=== PATIENT | female | born 1950 | race Caucasian/White ===

== ENCOUNTER 2019-10-08 11:08 | Day surgery (SDC) | payer MEDICARE, OTHER ==
--- NOTE | 2019-10-08 07:04 | History and Physical - Ferro ---
CHIEF COMPLAINT/HISTORY OF CHIEF COMPLAINT: This patient presents with a history of a post lumbar laminectomy radiculopathy. An implanted spinal infusion device was implanted which is infusing Morphine. Current basal rate is 7.7 mg a day. Pain level currently 0-10 is a 6. Recent refill and reprogramming identified battery depletion. She is here for battery replacement. PAST MEDICAL HISTORY: Noncontributory. PAST SURGICAL HISTORY: Lumbar spinal surgery and pump implant. MEDICATIONS ON ADMISSION: List to be provided. ALLERGIES: ASPIRIN. FAMILY/PSYCHOSOCIAL HISTORY: Social history - Caffeine. Family history - Noncontributory. SYSTEMS REVIEW: The patient is appropriate in no acute distress. The remainder of the systems review is positive for glasses and degenerative arthritis. PHYSICAL EXAMINATION: Height and weight are not known. No vital signs. HEENT: Within normal limits. LUNGS: Clear. HEART: Rapid and regular. ABDOMEN: Nontender. MUSCULOSKELETAL: Examination of the musculoskeletal system shows diffuse tenderness throughout the lumbar spine. Range of motion produces pain throughout the low back and extending into the lower extremities. The spinal catheter was identified on imaging and appears to tip at T12 insertion, approximately L3-L4 pump in the left lower abdominal quadrant. The incision is intact. Her lower extremity functionality is intact. There is pain, weakness and numbness into the right lower extremity. NEUROLOGIC: Cranial nerves are intact. IMPRESSION: 1. 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 2. IMPLANTED SPINAL OPIOID INFUSION SYSTEM MORPHINE WITH BATTERY DEPLETION. PLAN: The patient is here for pump battery change on an outpatient basis. No perimeter changes will be made. The risks, side effects and complications have been reviewed and discussed. JOB NUMBER: [id number] [facility]
[~2019-10-08 11:08] MED LIST: ACETAMINOPHEN 1,000 MG/100 ML BTL IVPB ONE; BUPIVACAINE HCL IV ONE; CEFAZOLIN 2 Gram 2 GM/50 ML BAG IVPB ONE; FAMOTIDINE 20MG TABLET PO ONE; HYDROMORPHONE HCL IV ONE; HYDROMORPHONE PF 2MG/ML AMP 0.008 MG in 0.9 % SODIUM CHLORIDE 10ML VIA 0.996 ML IV ONE; MECLIZINE 25 MG TABLET PO ONE; METOCLOPRAMIDE 10 MG TABLET PO ONE; SODIUM CHLORIDE 0.9% IV ONE
[2019-10-08] MEDS ORDERED: FENTANYL PF 100MCG/2ML VIAL IV ONE (11:09)
[2019-10-08] MEDS ORDERED: PROPOFOL 10 MG/ML VIAL IV ONE (11:09)
[2019-10-08] MEDS ORDERED: MIDAZOLAM HCL 2MG/2ML VIAL IV ONE (11:09)
[2019-10-08] MEDS ORDERED: LIDOCAINE 2% MDV (20MG/ML) 20ML VIAL IV ONE (11:09)
[2019-10-08] MEDS ORDERED: RINGERS SOLUTION,LACTATED 1,000 ML IV ONE (12:00)
[2019-10-08] MEDS ORDERED: BUPIVACAINE 0.5% W/EPI MPF 30 ML VIAL SQ ONE (14:56)
[2019-10-08] MEDS ORDERED: LIDOCAINE 1% W/EPI 1:200,000 MPF 30ML SQ ONE (14:56)
[2019-10-08] MEDS ORDERED: HYDROCODONE/APAP 7.5/325MG TABLET PO ONE (15:42)
--- NOTE | 2019-10-09 08:29 | Operative Note - Ferro ---
DATE OF SURGERY: 10/08/2019 PREOPERATIVE DIAGNOSIS: 1. 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 2. IMPLANTED SPINAL OPIOID INFUSION SYSTEM HYDROMORPHONE AND BUPIVACAINE WITH BATTERY DEPLETION. OPERATION: FLUOROSCOPICALLY GUIDED INCISION, SUBCUTANEOUS DISSECTION, REMOVAL AND REPLACEMENT OF INTERNAL BATTERY AT LEFT LOWER ABDOMINAL QUADRANT FOR INTERSPINAL INFUSION SYSTEM. SURGEON: Veto Rubi D.O. ANESTHESIA: Local sedation. ANESTHESIA PROVIDER: JAKE Magana CRNA INDICATION: This patient presents with history of intractable post lumbar laminectomy radiculopathy. Out of the area an interspinal infusion device was placed. She was referred and eventually picked up by this clinic to manage her pump after her implanting physician retired. Over the last number of reprogramming's and refills the pump battery depletion was identified. She is here for replacement. PROCEDURE: Intravenous line, vital sign monitoring, IV sedation, prepped and draped, sterile technique. The patient was positioned supine. Sterile prep, sterile technique. At the left lower abdominal quadrant pump pouch the skin was infiltrated, an incision made, and subcutaneous dissection was conducted to the pouch which was opened. The pump was externalized, from the internal catheter, antibiotic irrigation, and Bovie for hemostasis. A new 40 ml pump prefilled with Hydromorphone and Bupivacaine was placed onto the field then interfaced with the existing catheter, antibiotic irrigation, and Bovie for hemostasis. The pump was placed into the pouch, secured to the posterior fascia with a single nonabsorbable suture using one pump eyelet. With the pump in the pouch the incision was closed using Stratafix suture 2-0 fascia and 3-0 skin. Dermabond closure approximating the edges of the wound. She was transferred to the Recovery Room stable. The pump was reprogrammed back to original perimeters Hydromorphone 8.2 mg per day. All alarms were reset. She was stable showing no side effects from the procedure requesting discharge. DISCHARGE INSTRUCTIONS: 1. The sites are to remain clean and dry. No showering or bathing although the patient can shower she should not sit in the tub. 2. Standard medications will be resumed. The hospitalist called in the antibiotic Levaquin 500 mg once a day for fourteen days. She was given a prescription by myself to manage her incisional pain with Mcintosh, instructions were provided. 3. Spinal opioid side effects respiratory depression, nausea, vomiting, constipation, urinary retention and rash have all been reviewed. Instructions were provided. The office is to contact the patient in 12-24 hours to set up a time in 7-10 days to evaluate the sites. JOB NUMBER: [id number] [facility]
== END 2019-10-08 16:08 | disposition home or self-care (01) ==
LOC: SUR 11:08
PROVIDERS: ATTEND Pain Medicine Interventional Pain Medicine
DX: M96.1 Postlaminectomy syndrome, not elsewhere classified (principal); M54.16 Radiculopathy, lumbar region; M54.17 Radiculopathy, lumbosacral region; T85.690A Other mechanical complication of cranial or spinal infusion catheter, initial encounter
CPT/HCPCS: 62360; 00300; 62367; 85002; C1776; C1772; J3010; J0690; J7120